=== PATIENT | female | born 1965 | race Asian ===

== ENCOUNTER 2023-08-06 22:34 | Emergency (ER) | payer OTHER ==
[2023-08-06] MEDS: ONDANSETRON 4 MG/2 ML VIAL IVP STA (23:19)
[2023-08-06] MEDS: KETOROLAC 30 MG/ML VIAL IVP STA (23:19)
[2023-08-06] MEDS: SODIUM CHLORIDE 0.9% 1,000 ML IV STA (23:20)
--- NOTE | 2023-08-06 23:33 | ED Physician Documentation ---
PD HPI ABD PAIN - Stated complaint Stated Complaint: ABD PX - Chief complaint Chief Complaint: Abd Pain - History obtained from History obtained from: Patient - Additional information Additional information: Patient is a 58-year-old female with no significant past medical history presenting for evaluation of intermittent episodes of right upper quadrant pain for the past month. Patient states pain has worsened since this evening around 9 PM. States that she did not have dinner this evening as she has had ongoing nausea. No vomiting or diarrhea. Pain does not radiate. She denies noticing anything that makes the pain worse. She has not been evaluated for the pain or tried anything for the pain as of yet. Denies any prior abdominal surgeries. Normal BM today. No issues with urination. No chest pain, shortness of air, fever. Denies alcohol or drug use. Review of Systems Constitutional: denies: Fever Cardiac: denies: Chest pain / pressure Respiratory: denies: Dyspnea GI: reports: Abdominal Pain, Nausea. denies: Vomiting, Constipation : denies: Dysuria Musculoskeletal: denies: Back pain PD PAST MEDICAL HISTORY - Past Medical History Past Medical History: No - Past Surgical History Past Surgical History: No - Present Medications Home Medications: Ambulatory Orders Medication Instructions Recorded Confirmed Ondansetron Odt [Zofran] 4 mg TL Q6H PRN #10 tablet 08/07/23 - Allergies Allergies/Adverse Reactions: Allergies Allergy/AdvReac Type Severity Reaction Status Date / Time No Known Drug Allergies Allergy Verified 08/06/23 22:53 - Social History Does the pt smoke?: No Smoking Status: Former smoker Does the pt drink ETOH?: No ETOH Use: Wine Does the pt have substance abuse?: No PD ED PE NORMAL - General General: Alert and oriented X 3, No acute distress, Well developed/nourished - HEENT HEENT: Atraumatic, Moist mucous membranes, Pharynx benign - Neck Neck: Supple, no meningeal sign - Cardiac Cardiac: RRR, Strong equal pulses - Respiratory Respiratory: No respiratory distress, Clear bilaterally - Abdomen Abdomen: Normal bowel sounds, Soft, Non distended, Other (Right upper quadrant tenderness) - Derm Derm: Warm and dry - Neuro Neuro: Normal speech Results - Vitals Vitals: Vital Signs - 24 hr 08/06/23 08/07/23 08/07/23 22:48 01:00 01:57 Temperature 37.2 C Heart Rate 102 H 92 90 Respiratory 16 20 19 Rate Blood Pressure 153/88 H 114/66 O2 Saturation 97 92 95 Oxygen O2 Source Room air - EKG (time done) 2333 EKG releavant findings:: EKG personally interpreted by author of this note. Relevant findings are: Rate 81, normal sinus rhythm, no STEMI, QTc 472 - Labs Labs: Laboratory Tests 08/06/23 08/06/23 23:10 23:10 WBC 7.7 RBC 5.49 H Hgb 14.4 Hct 45.5 MCV 82.9 MCH 26.2 L MCHC 31.6 L RDW 16.1 H Plt Count 408 MPV 8.2 Neut # (Auto) 5.2 Lymph # (Auto) 1.6 [place] # (Auto) 0.7 Eos # (Auto) 0.2 Baso # (Auto) 0.1 Absolute Nucleated RBC 0.00 Nucleated RBC % 0.0 Sodium 134 L Potassium 3.7 Chloride 102 Carbon Dioxide 24 Anion Gap 8.0 BUN 16 Creatinine 0.3 L Estimated GFR (MDRD) 228 Glucose 105 H Calcium 8.8 Total Bilirubin 1.7 H AST 152 H ALT 53 Alkaline Phosphatase 265 H Total Protein 6.7 Albumin 3.0 L Globulin 3.7 Albumin/Globulin Ratio 0.8 L Lipase 17 PD Medical Decision Making - ED course Complexity details: reviewed results, re-evaluated patient, d/w patient, d/w family ED course: Patient is a 58-year-old female presenting for evaluation of right upper quadrant pain that has been intermittent since April but becoming more constant. She has associated nausea. Denies any significant past medical history including any known liver disease. CBC, chemistries were obtained and reviewed. Given her age I did obtain an EKG which does not show signs of acute ischemia. Labs are significant for mild elevation in total bilirubin of 1.7, AST of 152 and alk phos of 265. Ultrasound was obtained to evaluate for the gallbladder but the gallbladder was not able to be visualized as there is a large mass seen in the liver which is concerning for hepatocellular carcinoma. I also did obtain a CT scan of the abdomen and pelvis which again identifies this large mass in the liver. Patient is feeling better here after Zofran and Toradol. I did consult with her on-call general surgeon on whether patient should be admitted for expedited workup.Recommendations are for urgentFollow-up with her PCP and further testing. I sat down with the patient and her Amrik to review the findings seen on CT and ultrasound and explained our concerns that the large mass is a cancer called hepatocellular carcinoma. I stated the importance that patient needs close follow-up and further testing to Confirm the diagnosis and determine the next course of action.She and her both indicate that they understand but concerning diagnosis as well as the next steps that need to be taken. She and her understand the recommendations to go to the [facility] on Wednesday for follow-up with her PCP. I did prescribe Zofran for her. She is also advised on strict return precautions for any worsening symptoms. 0129 - Discussed with Dr. Rangel, general surgery. Reviewed presentation, labs and imaging with concerns for hepatocellular carcinoma. He agrees that patient needs Expedited workup but would not need admission at this time for this. He also does not think transfer would happen as this is usually outpatient testing that would need to occur such as a biopsy and PET scan. He recommends that patient reach out to her primary care at the [facility] on Wednesday and even present there in person to help arrange for this expedited follow-up. Departure - Departure Disposition: Home, Self Care Clinical Impression: Liver mass, Abnormal liver function test, Ascites Condition: Good Instructions: ED Cirrhosis Liver, ED Tumor [facility] Follow-Up: TIM Dickinson [Provider Group] YESIKA YEAGER ARNP [Primary Care Provider] - (08/09/23 - Please go to the [facility] on Wednesday morning with your aperwork, even without an appointment. You need urgent referrals for a biopsy and evaluation of the mass in your liver which is concerning for cancer.) Prescriptions: Ondansetron Odt [Zofran] 4 mg TL Q6H PRN #10 tablet PRN Reason: Nausea / Vomiting Comments: Your testing today shows a large mass in the liver. This is concerning for a type of liver cancer called hepatocellular carcinoma. You need very urgent follow-up for this and you will likely need a biopsy as well as further scans to see if there is any spread to cancer. Please see your primary care provider on Wednesday for quick follow-up to help arrange for the referrals and follow-up that you will need for this. Please take this paperwork with you. I have sent a prescription for an antinausea medication called Zofran to [facility] in [place]. Please use this as needed. Please return to the emergency department with any worsening symptoms such as increased pain, vomiting, yellowing of the white part of your eyes or any other concerns. ULTRASOUND IMPRESSION: 1.Nodular contour to the liver, consistent with cirrhosis. Large mass within the liver measuring up to 12 cm, findings are concerning for hepatocellular carcinoma. 2.Moderate ascites within the bilateral lower quadrants. CT SCAN FINDINGS: Image quality: Diagnostic. Lower chest: Small right pleural effusion with adjacent atelectasis versus consolidation. Mild left basilar atelectasis. Liver: Diffusely heterogeneous appearance of the liver with nodular contour consistent with cirrhosis. There is a large mass within the right hepatic lobe measuring 12.6 x 9.1 x 12.5 cm (AP by TV by CC). In the right portal veins are not well seen. The left portal veins and main portal vein are patent. Gallbladder and biliary tree: Gallbladder is not clearly seen, may be displaced or compressed by large mass. No biliary ductal dilatation. Spleen: Spleen is prominent. Splenule is noted. Pancreas: No pancreatic ductal dilation. Adrenals: No adrenal nodule. Kidneys and ureters: No hydronephrosis. No renal cystic lesion which requires follow up. No solid mass. Stomach, bowel and peritoneum: No bowel distension. Small to moderate volume ascites. Diffuse mesenteric edema. Normal appendix. Wall thickening and edema of the stomach. Lymph nodes: No central or retroperitoneal adenopathy. Prominent gastrohepatic lymph nodes measuring up to 9 mm (2/47). Vessels: No infrarenal aortic aneurysm. Upper abdominal varices are present. PELVIS Reproductive organs: Exophytic calcification arising from the uterus, likely a degenerated fibroid.. Bladder: No abnormal wall thickening, accounting for underdistention. Pelvic lymph nodes: No pelvic adenopathy by size criteria. Bones: No aggressive osseous abnormality. Mild degenerative changes of the spine. Other: No significant ventral or inguinal hernia. IMPRESSION: 1.Cirrhotic liver morphology with large mass measuring up to 12.6 cm concerning for hepatocellular carcinoma. 2.Sequela of portal hypertension including venous varices, prominent spleen and small to moderate volume ascites. 3.The right portal veins are not well seen, thrombosis is not excluded. The left and main portal veins are patent. 4.Prominent gastrohepatic lymph nodes measuring up to 9 mm, attention on follow- up. 5.Gallbladder is not definitively seen and may be displaced or compressed by the large mass. No biliary ductal dilatation. Forms: PCP List Discharge Date/Time: 08/07/23 01:56
[2023-08-06 23:35] LABS: BASOPHILS # (AUTO) 0.1 10^3/uL (0.0-0.1); BASOPHILS % (AUTO) 0.9 %; EOSINOPHILS # (AUTO) 0.2 10^3/uL (0.0-0.7); EOSINOPHILS % (AUTO) 2.1 %; HCT - HEMATOCRIT 45.5 % (37.0-47.0); HGB - HEMOGLOBIN 14.4 g/dL (12.0-16.0); LYMPHOCYTES # (AUTO) 1.6 10^3/uL (1.5-3.5); LYMPHOCYTES % (AUTO) 20.3 %; MEAN CORPUSCULAR HEMOGLOBIN 26.2 pg (27.0-31.0); MEAN CORPUSCULAR HGB CONC 31.6 g/dL (32.0-36.0); MEAN CORPUSCULAR VOLUME 82.9 fL (81.0-99.0); MEAN PLATELET VOLUME 8.2 fL (7.9-10.8); MONOCYTES # (AUTO) 0.7 10^3/uL (0.0-1.0); MONOCYTES % (AUTO) 8.5 %; NEUTROPHILS # (AUTO) 5.2 10^3/uL (1.5-6.6); NEUTROPHILS % (AUTO) 67.8 %; PLT - PLATELET COUNT 408 10^3/uL (130-450); RED BLOOD COUNT 5.49 10^6/uL (4.20-5.40); RED CELL DISTRIBUTION WIDTH 16.1 % (12.0-15.0); WHITE BLOOD COUNT 7.7 x10^3/uL (4.8-10.8)
[2023-08-07 00:04] LABS: ALBUMIN/GLOBULIN RATIO 0.8 (1.0-2.2); BILIRUBIN,TOTAL 1.7 mg/dL (0.2-1.0); CALCIUM 8.8 mg/dL (8.5-10.3); CREATININE 0.3 mg/dL (0.6-1.3); POTASSIUM 3.7 mmol/L (3.5-4.5); TOTAL PROTEIN 6.7 g/dL (6.4-8.9)
[2023-08-07] MEDS ORDERED: IOVERSOL 320 100 ML VIAL IVP ONE (00:17)
--- NOTE | 2023-08-07 00:35 | Ultrasound Report ---
PROCEDURE: Abdomen Limited INDICATIONS: RUQ pain TECHNIQUE: Real-time focused scanning was performed of the abdomen, with image documentation. COMPARISONS: None. FINDINGS: Liver: Coarsened echotexture with a nodular contour, consistent with cirrhosis. Large hypoechoic mas slike structure involving the superior portion of the right hepatic lobe measuring 12.0 x 8.8 x 10.8 cm with vascularity. The liver vasculature is identified. Gallbladder: Not seen. Biliary ducts: Not seen Pancreas: Visualized portions of the pancreas are sonographically normal. Right kidney: Normal in size and echotexture. Right kidney measures 8.7 cm long. No hydronephrosis o r nephrolithiasis. No solid masses. No complex renal cystic lesions which require follow-up. Aorta: Proximal aorta is normal in caliber measuring 2.2 cm IVC: Intrahepatic inferior vena cava is patent. Miscellaneous: Moderate free fluid is seen within the bilateral lower quadrants. IMPRESSION: 1.Nodular contour to the liver, consistent with cirrhosis. Large mass within the liver measuring up t o 12 cm, findings are concerning for hepatocellular carcinoma. 2.Moderate ascites within the bilateral lower quadrants. Reviewed by: Burke Yeboah MD on 08/07/2023 12:34 AM PST Approved by: Burke Yeboah MD on 08/07/2023 12:34 AM PST Station ID: [id number]
[2023-08-07] MEDS: IOVERSOL 320 100 ML VIAL IVP ONE (01:01)
[2023-08-07 01:10] VITALS: BP 114/66
--- NOTE | 2023-08-07 01:16 | CT Report ---
PROCEDURE: Abdomen/Pelvis W INDICATIONS: RUQ pain CONTRAST: 100 ML OPTI 320 TECHNIQUE: After the administration of intravenous contrast, a CT scan of the abdomen and pelvis was performed. Images were recorded and evaluated at appropriate window settings. Reformats: coronal and sagittal. F or radiation dose reduction, the following was used: automated exposure control, adjustment of mA and /or kV according to patient size. COMPARISON: Ultrasound 08/06/2023 FINDINGS: Image quality: Diagnostic. Lower chest: Small right pleural effusion with adjacent atelectasis versus consolidation. Mild left b asilar atelectasis. Liver: Diffusely heterogeneous appearance of the liver with nodular contour consistent with cirrhosis . There is a large mass within the right hepatic lobe measuring 12.6 x 9.1 x 12.5 cm (AP by TV by CC) . In the right portal veins are not well seen. The left portal veins and main portal vein are patent. Gallbladder and biliary tree: Gallbladder is not clearly seen, may be displaced or compressed by larg e mass. No biliary ductal dilatation. Spleen: Spleen is prominent. Splenule is noted. Pancreas: No pancreatic ductal dilation. Adrenals: No adrenal nodule. Kidneys and ureters: No hydronephrosis. No renal cystic lesion which requires follow up. No solid mas s. Stomach, bowel and peritoneum: No bowel distension. Small to moderate volume ascites. Diffuse mesente dangelo edema. Normal appendix. Wall thickening and edema of the stomach. Lymph nodes: No central or retroperitoneal adenopathy. Prominent gastrohepatic lymph nodes measuring up to 9 mm (2/47). Vessels: No infrarenal aortic aneurysm. Upper abdominal varices are present. PELVIS Reproductive organs: Exophytic calcification arising from the uterus, likely a degenerated fibroid.. Bladder: No abnormal wall thickening, accounting for underdistention. Pelvic lymph nodes: No pelvic adenopathy by size criteria. Bones: No aggressive osseous abnormality. Mild degenerative changes of the spine. Other: No significant ventral or inguinal hernia. IMPRESSION: 1.Cirrhotic liver morphology with large mass measuring up to 12.6 cm concerning for hepatocellular ca rcinoma. 2.Sequela of portal hypertension including venous varices, prominent spleen and small to moderate vol ume ascites. 3.The right portal veins are not well seen, thrombosis is not excluded. The left and main portal vein s are patent. 4.Prominent gastrohepatic lymph nodes measuring up to 9 mm, attention on follow-up. 5.Gallbladder is not definitively seen and may be displaced or compressed by the large mass. No bilia ry ductal dilatation. Reviewed by: Burke Yeboah MD on 08/07/2023 1:15 AM PST Approved by: Burke Yeboah MD on 08/07/2023 1:15 AM PST Station ID: [id number]
[2023-08-07 02:00] VITALS: O2SAT 95
== END 2023-08-07 01:56 | disposition home or self-care (01) ==
LOC: ED 22:34
DX: R16.0 Hepatomegaly, not elsewhere classified (principal); R18.8 Other ascites; Z87.891 Personal history of nicotine dependence
CPT/HCPCS: 36415; 74177; 76705; 80053; 83690; 85025; 93005; 96374; 99284; Q9967

== ENCOUNTER 2023-08-22 22:13 | Emergency (ER) | payer OTHER ==
[2023-08-22 23:05] LABS: BASOPHILS # (AUTO) 0.1 10^3/uL (0.0-0.1); BASOPHILS % (AUTO) 0.7 %; EOSINOPHILS # (AUTO) 0.1 10^3/uL (0.0-0.7); EOSINOPHILS % (AUTO) 1.2 %; HCT - HEMATOCRIT 45.7 % (37.0-47.0); HGB - HEMOGLOBIN 14.2 g/dL (12.0-16.0); LYMPHOCYTES # (AUTO) 1.9 10^3/uL (1.5-3.5); LYMPHOCYTES % (AUTO) 21.2 %; MEAN CORPUSCULAR HEMOGLOBIN 24.9 pg (27.0-31.0); MEAN CORPUSCULAR HGB CONC 31.1 g/dL (32.0-36.0); MONOCYTES # (AUTO) 0.7 10^3/uL (0.0-1.0); MONOCYTES % (AUTO) 7.6 %; NEUTROPHILS # (AUTO) 6.2 10^3/uL (1.5-6.6); PLT - PLATELET COUNT 464 10^3/uL (130-450); RED BLOOD COUNT 5.71 10^6/uL (4.20-5.40); RED CELL DISTRIBUTION WIDTH 17.9 % (12.0-15.0); WHITE BLOOD COUNT 9.1 x10^3/uL (4.8-10.8)
[2023-08-22 23:22] LABS: ALBUMIN/GLOBULIN RATIO 0.7 (1.0-2.2); ALKALINE PHOSPHATASE 278 IU/L (42-121); ALT ALANINE AMINOTRANSFERASE 39 IU/L (10-60); AST ASPARTATE AMINOTRANSFERASE 206 IU/L (10-42); BILIRUBIN,TOTAL 2.7 mg/dL (0.2-1.0); BUN - BLOOD UREA NITROGEN 15 mg/dL (6-20); CARBON DIOXIDE - CO2 25 mmol/L (21-32); CHLORIDE 98 mmol/L (101-111); CREATININE 0.4 mg/dL (0.6-1.3); GFR - MDRD 163 (>89); GLUCOSE 73 mg/dL (74-104); POTASSIUM 3.7 mmol/L (3.5-4.5); SODIUM 132 mmol/L (135-145); TOTAL PROTEIN 7.2 g/dL (6.4-8.9)
[2023-08-22 23:23] LABS: LIPASE < 10 U/L (11-82)
[2023-08-23 00:24] VITALS: O2SAT 93
[2023-08-23] MEDS: SODIUM CHLORIDE 0.9% 1,000 ML IV STA (00:44)
[2023-08-23] MEDS: ONDANSETRON 4 MG/2 ML VIAL IVP STA (00:45)
--- NOTE | 2023-08-23 01:22 | ED Physician Documentation ---
PD HPI ABD PAIN - Stated complaint Stated Complaint: UPPER ABD PX - Chief complaint Chief Complaint: Abd Pain - History obtained from History obtained from: Patient, Family - Additional information Additional information: The patient comes to the emergency department with her with chief complaint of abdominal discomfort, nausea, and decreased ability to eat. The patient about 2 and half weeks ago was diagnosed with a large hepatic tumor likely hepatocellular carcinoma. In the intervening time, she has been able to see her primary doctor, be reevaluated at the emergency department, and be referred to the liver tumor clinic. The patient states that several days after she was seen here, whereas she had had the ability to eat some food at the time of her visit here, she lost the ability to really eat much of anything. She states she desires to eat but that when she gets more than 1 or 2 bites down, she just feels bad. She gets some nausea but does not vomit. She really has no t been having any bowel movements, though she is passing gas. No vomiting. No fevers. She feels like her liver is bigger than it was, and states that taking a deep breath feels somewhat difficult. Her jaundice has not worsened. She has been using Zofran intermittently at home and has not needed it every day. She has been having some right upper quadrant pain for which she has been taking ibu profen and Tylenol. She states that this does not help much. PD PAST MEDICAL HISTORY - Past Medical History GI: Cirrhosis, Other Other Past Medical History: liver mass, heaptitis b carrier - Past Surgical History Past Surgical History: No - Present Medications Home Medications: Ambulatory Orders Medication Instructions Recorded Confirmed Ondansetron Odt [Zofran] 4 mg TL Q6H PRN #10 tablet 08/07/23 08/22/23 HYDROcod/ACETAM 5/325 [[place] 5/325] 1 - 2 tablet PO Q6H PRN #14 tablet 08/23/23 - Allergies Allergies/Adverse Reactions: Allergies Allergy/AdvReac Type Severity Reaction Status Date / Time No Known Drug Allergies Allergy Verified 08/22/23 22:32 - Social History Does the pt smoke?: No Smoking Status: Never smoker Does the pt drink ETOH?: No Does the pt have substance abuse?: No PD ED PE NORMAL - Vitals Vital signs reviewed: Yes - General General: Alert and oriented X 3, No acute distress, Well developed/nourished - HEENT HEENT: Atraumatic, PERRL, EOMI, Moist mucous membranes - Neck Neck: Supple, no meningeal sign - Cardiac Cardiac: RRR, No murmur - Respiratory Respiratory: No respiratory distress, Clear bilaterally - Abdomen Abdomen: Soft, Other (Generalized mild tenderness, no rebound or guarding. Palpably firm and distended liver) - Derm Derm: Normal color, Warm and dry, No rash - Extremities Extremities: No deformity - Neuro Neuro: Alert and oriented X 3 - Psych Psych: Normal mood, Normal affect Results - Vitals Vitals: Vital Signs - 24 hr 08/22/23 08/22/23 08/23/23 22:26 23:00 00:00 Temperature 37.1 C Heart Rate 100 96 97 Respiratory 18 16 15 Rate Blood Pressure 129/75 124/83 H 122/79 O2 Saturation 96 94 93 Oxygen O2 Source Room air - Labs Labs: Laboratory Tests 08/22/23 08/22/23 22:46 22:46 WBC 9.1 RBC 5.71 H Hgb 14.2 Hct 45.7 MCV 80.0 L MCH 24.9 L MCHC 31.1 L RDW 17.9 H Plt Count 464 H MPV 8.0 Neut # (Auto) 6.2 Lymph # (Auto) 1.9 [place] # (Auto) 0.7 Eos # (Auto) 0.1 Baso # (Auto) 0.1 Absolute Nucleated RBC 0.00 Nucleated RBC % 0.0 Sodium 132 L Potassium 3.7 Chloride 98 L Carbon Dioxide 25 Anion Gap 9.0 BUN 15 Creatinine 0.4 L Estimated GFR (MDRD) 163 Glucose 73 L Calcium 9.0 Total Bilirubin 2.7 H AST 206 H ALT 39 Alkaline Phosphatase 278 H Total Protein 7.2 Albumin 3.0 L Globulin 4.2 Albumin/Globulin Ratio 0.7 L Lipase < 10 L PD Medical Decision Making - ED course Complexity details: reviewed old records, reviewed results, re-evaluated patient, considered differential, d/w patient, d/w family ED course: I reviewed the patient's records and repeated her labs today. Her bilirubin and AST were somewhat worse today than before but ALT was actually slightly improved. There is no elevation in lipase. I discussed with the patient and her that while we could repeat the CT scan, I suspect it will not drying rack changer much at this point. The patient is not clinically obstructed, she is not vomiting and is still passing gas. I suspect her liver is exerting increased pressure on the rest of her abdominal organs, and in particular, the intestines. I discussed with her that she may get to the point where she begins vomiting and is passing nothing at all through her intestines and if this occurs, she will need to come back to the emergency department for repeat evaluation with CT. Otherwise, she has an appointment at the liver clinic on August 31, which is 9 days from now, then she should continue to plan to keep that. The patient has been given a liter of 0.9 normal saline here and a dose of Zofran. She says she still has Zofran at home but has not requested something for pain and I will gladly prescribe this for her. We have discussed the usual indications for return. Departure - Departure Disposition: 01 Home, Self Care Clinical Impression: Abdominal pain Qualifiers: Abdominal location: unspecified location Qualified Code(s): R10.9 - Unspecified abdominal pain Condition: Stable Instructions: ED Abdominal Pain Female Non-Specific Abdominal Pain Prescriptions: HYDROcod/ACETAM 5/325 [[place] 5/325] 1 - 2 tablet PO Q6H PRN #14 tablet PRN Reason: Pain Forms: PCP List
[2023-08-23] MEDS: HYDROmorphone 0.5 MG/0.5 ML SYRINGE IVP STA (01:38)
[2023-08-23 02:07] VITALS: BP 121/79
== END 2023-08-23 02:03 | disposition home or self-care (01) ==
LOC: ED 22:13
DX: R10.11 Right upper quadrant pain (principal); D49.0 Neoplasm of unspecified behavior of digestive system
CPT/HCPCS: 36415; 80053; 83690; 85025; 96374; 96375; 99283; 99284; J1170